=== PATIENT | male | born 1985 ===

== ENCOUNTER 2024-08-25 12:06 | Emergency (ER) | payer OTHER, SELFPAY ==
[2024-08-25] VITALS (10 sets, daily range): BP systolic 147–157; BP diastolic 97–117; BMI 25.5
[2024-08-25 13:13] LABS: % Basophils 0.7 % (0-2); % Eosinophils 0.4 % (0-6); % Immature Granulocytes 0.4 % (0-0.5); % Lymphocytes 16.5 % (20.5-51.1); % Monocytes 13.6 % (1.7-9.3); % Neutrophils 68.4 % (42.2-75.2); Absolute Lymphocytes 0.9 10^3/uL (1.2-3.4); Absolute Monocytes 0.8 10^3/uL (0.1-0.6); Absolute Neutrophils 3.9 10^3/uL (1.4-6.5); Hematocrit 43.5 % (39.0-52.0); Hemoglobin 15.1 g/dL (13.0-18.0); Mean Corp Hgb Conc. 34.7 g/dL (33.0-37.0); Mean Corpuscular Hgb 28.9 pg (27.0-31.0); Mean Corpuscular Volume 83.2 fL (80.0-94.0); Mean Platelet Volume 9.2 fL (7.4-10.4); Nucleated Red Blood Cells % 0 % (-); Platelet Count 187 10^3/uL (130-400); Red Blood Cell Count 5.23 10^6/uL (4.70-6.10); Red Cell Dist. Width 13.2 % (11.5-14.5); White Blood Cell Count 5.7 10^3/uL (4.8-10.8)
--- NOTE | 2024-08-25 13:17 | ED.GENMED ---
History of Present Illness
General
Chief Complaint: Crisis Evaluation
Source: patient and family
Exam Limitations: none
Time Seen by Provider: 08/25/24 12:54
History of Present Illness
History of Present Illness:
38yoM with a history of anxiety presenting with his and stepdaughter for detox evaluation. Patient states he is an alcoholic and wants to stop drinking. He drinks about 4-6 hard seltzers/day. Last drink was around 1am. He reports some
anxiety currently. He also reports intermittent episodes of sweating. He had some chest tightness last night but denies any chest pain currently. He has never had withdrawal seizures in the past.
Past History
Past History
ED Past Medical History: None
ED Past Surgical History: Appendectomy and Other (hernia)
Social History
Tobacco: Non-smoker
Alcohol: Occasional
Living: with family
Phy Exam
General Physical Exam
General Presentation: well appearing and no apparent distress
General Skin: warm and dry
General Habitus: normal
General Mental: alert
ENT Exam
ENT Exam: normocephalic
Cardiovascular Exam
Cardiovascular Exam: regular rate/rhythm
Pulmonary Exam
Pulmonary Exam: lungs clear, no respiratory distress, no rales, no crackles, no rhonchi and no wheezing
Gastrointestinal Exam
Gastrointestinal Exam: non tender, soft and non distended
Neurological Exam
Neurological Exam: alert and other (Patient mildly tremulous)
Warren Coma Scale
Eye Opening: Spontaneous
Verbal Response: Oriented
Motor Response: Obeys Commands
GCS Total Score: 15
Skin Exam
Skin Exam: normal color and warm/dry
Psychiatric Exam
Psychiatric Exam: anxious
Course
Orders/Labs/Results
Orders:
Orders
08/25/24 12:53
Electrocardiogram (*1) Stat
Comment: ALREADY DONE IN ED
08/25/24 13:04
Alcohol Urgent
Complete Blood Count/With Diff Urgent
Comprehensive Metabolic Panel Urgent
Direct Bilirubin Urgent
Comment: ADD ON
Lipase Urgent
Comment: ADD ON
Magnesium Urgent
TSH Urgent
Comment: ADD ON
08/25/24 13:15
Cardiac Monitoring- Treatment ONCE
0.9% Sodium Chloride 1000 ml [Nss] 1,000 ml IV BOLUS
08/25/24 13:20
Add On- LAB Urgent
Tests Added?: TSH
08/25/24 13:23
[id number] [Valium Injection] 5 mg IV NOW STA
08/25/24 13:27
Troponin I Urgent
08/25/24 14:13
US Abdomen Complete/Upper Urgent
Comment:
Reason For Exam: transaminitis
08/25/24 14:16
Add On- LAB Urgent
Tests Added?: lipase
08/25/24 14:29
Prothrombin Time Urgent
08/25/24 14:32
Add On- LAB Urgent
Tests Added?: direct bili
Abnormal Lab Results
08/25/24
13:04
Absolute Lymphs (auto) 0.9 L 10^3/uL
(1.2-3.4)
Absolute Monos (auto) 0.8 H 10^3/uL
(0.1-0.6)
Lymphocytes % 16.5 L %
(20.5-51.1)
Monocytes % 13.6 H %
(1.7-9.3)
Carbon Dioxide 21 L mmol/L
(22-30)
BUN 6 L mg/dl
(9-20)
Creatinine 0.6 L mg/dL
(0.7-1.3)
Glucose 115 H mg/dl
(70-99)
Total Bilirubin 4.4 H mg/dl
(0.2-1.3)
Direct Bilirubin 0.7 H mg/dl
(0.0-0.4)
AST 304 H U/L
(17-59)
ALT 161 H U/L
(0-50)
Total Protein 8.7 H g/dl
(6.3-8.2)
Albumin 5.3 H g/dl
(3.5-5.0)
08/25/24 13:04
08/25/24 13:04
Vital Signs
Initial and Last Documented VS:
Initial Vital Signs
Temp Pulse Resp BP Pulse Ox
98.7 F 92 18 150/114 99
08/25/24 12:07 08/25/24 12:07 08/25/24 12:07 08/25/24 12:07 08/25/24 12:07
Last Documented Vital Signs
Temp Pulse Resp BP Pulse Ox
98.5 F 74 28 151/109 98
08/25/24 12:52 08/25/24 17:00 08/25/24 17:00 08/25/24 16:27 08/25/24 16:27
MDM/Problems Addressed
Differential Diagnosis Includes:
38yoM here requesting alcohol detox. Last drink around 1am. C/o anxiety and he is mildly tremulous on exam. He is mildly hypertensive with otherwise normal vitals. Differential diagnosis includes but is not limited to: alcohol withdrawal, anxiety,
dehydration, less likely ACS
Initial ED plan: Check cardiac labs, magnesium, and EKG. IV Valium and fluid bolus.
*EKG
Interpreted by ED Provider?: Yes
EKG Intrepretation Date: 08/25/24
Heart Rate: 84
Rate: normal
Rhythm: sinus
[place]foot: normal axis
Interval: normal interval
QRS Pattern: normal QRS
Ischemia: no ischemia
*Critical Care Note
Total Time (30-74mins, 75-104mins- exclusive of procedures): Not Applicable
Update Note
Update Note:
Labs reveal a transaminitis with AST 304, ALT 161, and total bilirubin of 4.4. Direct bilirubin added which is 0.7. INR normal. Upper abdominal ultrasound obtained which shows fatty liver and hepatomegaly. Labs discussed with on-call
guest experience representative, Dr. Thorpe. 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 Patient stable for discharge from GI perspective. has been in contact with [facility] near
[place]. Patient accepted at this facility and to transport him directly to the facility after discharge. Patient discharged in stable condition.
ED Attending Note
-
Portions of this chart may have been created with voice recognition software.� Occasional wrong word or��sound alike� substitutions may have occurred due to the inherent limitations of voice recognition software.
Discharge Plan
Departure
Patient Disposition: Home (Routine Discharge)
Date of Disposition: 08/25/24
Time of Disposition: 16:15
Patient with high blood pressure during this ER visit?: Yes
Discharge Problem:
Alcohol withdrawal
Instructions: Alcohol withdrawal
Prescriptions:
No Action
propranolol 10 mg Tablet
10 mg PO DAILY PRN (Reason: anxiety)
buspirone [BuSpar] 10 mg Tablet
10 mg PO DAILY
Vraylar 1.5 mg Capsule
2.5 mg PO DAILY
Referrals:
UNKNOWN,NO INTERVIEW [Family Provider]
Activity Restrictions/Additional Instructions:
You are medically cleared for alcohol detox treatment.
Interventions
Interventions:
*Risk Screen - Suicide Last Done: 08/25/24 12:14
*General Assessment Last Done: 08/25/24 12:07
*Neglect/Abuse Screening Last Done: 08/25/24 12:14
*ED- Fall Risk Assessment Last Done: 08/25/24 12:52
*ED COVID-19 Vaccine History Last Done: 08/25/24 12:07
*Nursing Disposition Last Done: 08/25/24 17:01
ED-Psychological Assessment Last Done: 08/25/24 12:52
Discharge Date and Time
Discharge Date/Time: 08/25/24 17:03
Print Language: GHANAIAN
[2024-08-25] MEDS: NSS 1000 IV (13:30)
[2024-08-25] MEDS: VALIUM INJECTION 5 MG IV (13:30)
[2024-08-25 14:05] LABS: Troponin I < 0.012 ng/ml
[2024-08-25 14:10] LABS: ALT (SGPT) 161 U/L (0-50); AST (SGOT) 304 U/L (17-59); Albumin 5.3 g/dl (3.5-5.0); Alcohol 39 mg/dl; Alkaline Phosphatase 70 U/L (38-126); Blood Urea Nitrogen 6 mg/dl (9-20); Calcium 10.2 mg/dl (8.4-10.2); Carbon Dioxide 21 mmol/L (22-30); Chloride 104 mmol/L (98-107); Estimated Creatinine Clearance > 125 ml/min; Glucose 115 mg/dl (70-99); Magnesium 1.6 mg/dl (1.6-2.3); Potassium 4.3 mmol/L (3.5-5.1); Sodium 138 mmol/L (135-145); Total Bilirubin 4.4 mg/dl (0.2-1.3); Total Protein 8.7 g/dl (6.3-8.2); eGFR > 60.00
[2024-08-25 14:27] LABS: Lipase 167 U/L (23-300)
[2024-08-25 14:51] LABS: INR 1.07; PT 14.4 Sec (11.4-14.6)
[2024-08-25 15:11] LABS: Direct Bilirubin 0.7 mg/dl (0.0-0.4)
[2024-08-25 17:04] LABS: TSH 1.51 uIU/ml (0.47-4.68)
== END 2024-08-25 17:03 | disposition home or self-care (01) ==
LOC: EMR 12:06
PROVIDERS: Physician Assistant; EMERGENCY PHYSICIAN Emergency Medicine
DX: F10.939 Alcohol use, unspecified with withdrawal, unspecified (principal); Y90.9 Presence of alcohol in blood, level not specified; Z90.49 Acquired absence of other specified parts of digestive tract; F41.9 Anxiety disorder, unspecified
CPT/HCPCS: 99284; 96374; 96361; 76700; 80053; 82077; 82248; 83690; 83735; 84443; 84484; 85025; 85610; 93005

== ENCOUNTER → 2025-01-05 09:52 | Outpatient (REF) | payer BC, SELFPAY ==
[2025-01-06 15:09] LABS: Rheumatoid Agglutinin Less Than 10 IU (<10 IU)
[2025-01-08 02:08] LABS: CCP Antibody IgG/IgA 3 Units (0-19)
== END ==
LOC: RAD 09:52
PROVIDERS: ATTENDING PHYSICIAN Internal Medicine Rheumatology; FAMILY PHYSICIAN Family Medicine
DX: M25.50 Pain in unspecified joint (principal)
CPT/HCPCS: 36415; 73030; 73523; 86200; 86430